=== PATIENT | female | born 2000 | race Two or more races ===

== ENCOUNTER 2024-03-06 00:46 | Emergency (ER) | payer OTHER, SELFPAY ==
[2024-03-06 00:51] VITALS: BP 128/78; PULSE 86; RESP 18; TEMP 36.7; O2SAT 99; BMI 34.5
--- NOTE | 2024-03-06 01:35 | ED_ITS ---
HPI - General Adult General Chief complaint: Ear/Nose/Throat Problem Stated complaint: left side ear pressure Time Seen by Provider: 03/06/24 01:35 History of Present Illness HPI narrative: CC: Left Ear Pressure pt. with left ear pressure that started today. has had cold symptoms for last week. denies n/v, diarrhea, fevers. 23-year-old woman presenting to the emergency department with concern of left- sided ear pain and pressure. Really began today. Over the last week has had some rhinorrhea and congestion. No fever. No rash. Just experiencing a lot of pain in the left ear. Ibuprofen ineffective? Concerned also as that will be leaving in a few days home to [place] for a while. No cough. Sounds like was recommended to try some nasal rinses of some sort but these were limited. Related Data Previous Rx's ?Medication ?Instructions ?Recorded amoxicillin 875 mg tablet 875 mg PO BID 10 days #20 tabs 03/06/24 Allergies Allergy/AdvReac Type Severity Reaction Status Date / Time No Known Drug Allergies Allergy Verified 03/06/24 00:53 Review of Systems Status of ROS: Reports: 6 or more systems reviewed and unremarkable except as noted in History and below [facility] Medical History No significant past medical history Surgical History No significant past surgical history Social History Smoking Status: Never smoker Second hand tobacco smoke exposure: No How often do you have a drink containing alcohol: never AUDIT-C Alcohol total score: 0 Non-prescribed substance use: denies use Exam Narrative: Exam Narrative: Pleasant. NAD. Does sound mildly congested in the nasopharynx. No facial swelling erythema or tenderness. Right TM is unremarkable. Left TM is full with fluid mildly inflamed but semi transparent. I would not consider this to be a bacterial infection at this point. Lungs are clear. Heart with regular rate and rhythm. Oropharynx is unremarkable Const: Vital Signs, click to edit/add: Vital Signs - 24 hr 03/06/24 00:51 Temperature 98.0 F Pulse Rate [Right Pulse Oximeter] 86 Respiratory Rate 18 Blood Pressure [Le ft Upper Arm] 128/78 Pulse Oximetry 99 Oxygen Delivery Me thod Room Air Documenting provider has reviewed patient's vital signs: yes Course Vital Signs Vital signs: Initial Vital Signs Temperature 98.0 F 03/06/24 00:51 Temperature Source Temporal Artery Scan 03/06/24 00:51 Pulse Rate 86 03/06/24 00:51 Respiratory Rate 18 03/06/24 00:51 Blood Pressure 128/78 03/06/24 00:51 Blood Pressure Mean 94 03/06/24 00:51 Blood Pressure Position Supine 03/06/24 00:51 Pulse Oximetry 99 03/06/24 00:51 Oxygen Delivery Method Room Air 03/06/24 00:51 Vital Signs Temperature 98.0 F 03/06/24 00:51 Pulse Rate 86 03/06/24 00:51 Respiratory Rate 18 03/06/24 00:51 Blood Pressure 128/78 03/06/24 00:51 Pulse Oximetry 99 03/06/24 00:51 Oxygen Delivery Method Room Air 03/06/24 00:51 Temperature 98.0 F 03/06/24 02:21 Pulse Rate 81 03/06/24 02:21 Respiratory Rate 18 03/06/24 02:21 Blood Pressure 121/74 03/06/24 02:21 Pulse Oximetry 99 03/06/24 02:20 Oxygen Delivery Method Room Air 03/06/24 02:20 Medications Administered Medications: Discontinued Medications Generic Name Dose Route Start Last Admin Trade Name Freq PRN Reason Stop Dose Admin Pseudoephedrine HCl 60 mg 03/06/24 01:56 03/06/24 02:18 Pseudoephedrine Hcl 30 Mg Tablet PO 03/06/24 01:57 60 mg ONCE ONE Administration Medical Decision Making [facility] Narrative Medical decision making narrative: Would consider screening for COVID. Otherwise appears to have a viral URI. Does not appear to have symptoms of pneumonia at this point. Ear symptoms are more consistent with fluid pressure not necessarily bacterial infection at this point. Given pseudoephedrine here in the emergency department. Would also consider opiate for ear pain particularly in the setting of air travel. Hoping with decongestant though can get over this quickly. See patient discharge plan for further discussion Lab Data Lab results reviewed: Yes I reviewed the patient's lab results Discharge Plan Discharge Clinical Impression: Otalgia of left ear, Conjunctivitis, viral, Dysfunction of eustachian tube, Head cold Patient Disposition: Home, Self-Care Condition: Stable Additional Instructions: Focus on hydration. Yes. You might try a Neti pot and nasal saline rinses. Consider sleeping under the mist of a cool mist humidifier. Menthol vapors might be helpful. I do like the 12 hour formulation of pseudoephedrine. This is helpful for drying and decongestion. Can probably take it every 10 hours or so. Can pick this up at the pharmacy. For your eye, clean with warm moist cloth as needed. Generic eye ointment or refresh p.m. drops apply as needed for discomfort. Prescribing prednisone to further help clear your congestion/swelling. From [facility]. If in 2 days your ear is no better, I have called in a prescription for antibiotic; amoxicillin will be waiting for you at the pharmacy. I do not think you have a bacterial ear infection at this time to benefit from antibiotics. Prescriptions: New amoxicillin 875 mg tablet 875 mg PO BID 10 Days Qty: 20 0RF Stand Alone Forms: [facility] Info Instructions
[2024-03-06] MEDS: PSEUDOEPHEDRINE HCL 30 MG TABLET 60 MG PO (02:18)
[2024-03-06 02:20] VITALS: BP 121/74; PULSE 81; RESP 18; TEMP 36.7; O2SAT 99
[2024-03-06 02:21] VITALS: BP 121/74; PULSE 81; RESP 18; TEMP 36.7
== END 2024-03-06 02:21 | disposition home or self-care (01) ==
LOC: ED 02:14
PROVIDERS: Emergency Provider Family Medicine
DX: H92.02 Otalgia, left ear (principal); H69.92 Unspecified Eustachian tube disorder, left ear; H10.9 Unspecified conjunctivitis
CPT/HCPCS: 99283; 99284; A9270